=== PATIENT | female | born 1985 | race African-American/Black ===

== ENCOUNTER 2017-02-04 10:37 | Emergency (ER) | payer OTHER ==
[~2017-02-04] VITALS: Ht 170.2 cm; Wt 61.2 kg
[~2017-02-04 10:37] MED LIST: LOESTRIN1 EAC1 PO; MULTI VITAMIN1 EACH PO; TRAMADOL 50 MG50 MG PO
[2017-02-04 11:32] LABS: URINE BILIRUBIN NEGATIVE (Negative); URINE BLOOD 3+ (Negative); URINE COLOR BROWN; URINE GLUCOSE-RANDOM* NEGATIVE (Negative); URINE KETONES TRACE (Negative); URINE LEUKOCYTES-REFLEX 1+ (Negative); URINE PROTEIN (DIPSTICK) 1+ (Negative); URINE SPECIFIC GRAVITY 1.025 (1.003-1.035)
[2017-02-04 11:35] LABS: ABSOLUTE NEUTROPHILS 6.8 thou/uL (1.4-8.2); BASOPHILS 0.3 % (0.0-2.0); EOSINOPHILS 0.7 % (0.0-3.0); HEMATOCRIT 36.8 % (37.0-47.0); HEMOGLOBIN 11.8 gm/dL (12.0-15.0); LYMPHOCYTES 17.1 % (24.0-44.0); MCH 22.4 pg (26.0-34.0); MCV 70.1 fL (80.0-100.0); MONOCYTES 4.7 % (1.0-8.0); PLATELET COUNT 232 thou/uL (150-400); POLYS 77.2 % (36.0-66.0); RBC 5.25 mil/uL (4.20-5.00); RDW 15.3 % (10.5-14.5); WBC 8.9 thou/uL (4.0-11.0)
[2017-02-04 11:38] LABS: CALCIUM 9.1 mg/dL (8.5-10.1); CREATININE 0.8 mg/dL (0.6-1.0); MANUAL DIFF NO; POTASSIUM 3.8 mmol/L (3.5-5.1)
[2017-02-04 11:39] LABS: CASTS None Seen /LPF (None Seen); SQUAMOUS 4-10 Moderate /LPF (0-3)
[2017-02-04 11:40] LABS: URINE RBC >20 Many /HPF (0-2)
[2017-02-04 11:41] LABS: CRYSTALS None Seen /LPF (None Seen)
[2017-02-04] MEDS ORDERED: KEFLEX500 MG PO (12:02)
[2017-02-04 13:59] VITALS: BP 191/117
[2017-02-06 17:08] LABS: CHLAMYDIA TRACHOMATIS-PCR Negative (Negative); NEISSERIA GONORRHEA-PCR Negative (Negative)
== END 2017-02-04 12:05 | disposition home or self-care (01) ==
LOC: ER 10:37
PROVIDERS: Emergency Medicine
DX: N39.0 Urinary tract infection, site not specified (principal); N93.9 Abnormal uterine and vaginal bleeding, unspecified; F10.99 Alcohol use, unspecified with unspecified alcohol-induced disorder; Z87.891 Personal history of nicotine dependence